=== PATIENT | female | born 1960 | race Caucasian/White ===

== ENCOUNTER 2016-12-28 08:52 | Day surgery (SDC) | payer OTHER ==
[~2016-12-28] VITALS: Ht 160 cm; Wt 67.8 kg
[2016-12-28 09:40] VITALS: Ht 160 cm; Wt 67.8 kg
[2016-12-28] MEDS ORDERED: HERBAL MEDS (09:44)
[2016-12-28 09:47] VITALS: BP 133/77; PULSE 83; RESP 19
[2016-12-28] MEDS ORDERED: FENTAnyl 50 MCG/ML VIAL ONE (10:28)
[2016-12-28] MEDS ORDERED: MIDAZOLAM 1 MG/ML 2 ML INJ ONE ×3 (10:28)
--- NOTE | 2016-12-28 10:34 | OPPN ---
Date/Time of Note Date/Time of Note DATE: 12/28/16 TIME: 10:31 Operative Report Preoperative Diagnosis Nausea Postoperative Diagnosis Nausea and screening colonoscopy Operation/Procedure Performed 1. Gastritis acute and chronic 2. Colon polyp, cold snare polypectomy done 2 polyps removed from the transverse colon Provider: TONY PATEL MD Estimated blood loss: none Transfusion Required: no Specimen: none Grafts/Implants: none Complications: no TONY PATEL MD Dec 28, 2016 10:33
[2016-12-28 10:50] VITALS: BP 125/73; PULSE 72; RESP 14
--- NOTE | 2016-12-28 11:10 | GILP ---
DATE OF PROCEDURE: 12/28/2016 SURGEON: Davi Boogie MD PROCEDURE PERFORMED: EGD with biopsy. HISTORY: The patient is a 56-year-old female undergoing this procedure for screening colonoscopy and upper endoscopy for persistent nausea. The risks of the procedure, related complications, sedative risk, alternatives discussed, informed consent was obtained. DESCRIPTION OF PROCEDURE: The patient was brought to the GI lab, sedated with Versed 5 mg and fentanyl 100 mg after optimal sedation the scope was positive within the esophagus, which was grossly within normal limits. Z-line was at 38 cm. Stomach mucosa revealed chronic gastritis. Multiple biopsies obtained to rule out H pylori infection. The duodenum first and second part appeared normal. Retroflexion in the stomach also was normal. Patient had a guzman gastritis. Four biopsies were obtained. There was also inflammatory polyp, sessile, in the antrum. Scope was straightened out and removed with good patient tolerance. IMPRESSION: 1. Normal esophagus. 2. Z-line at 37 cm. 3. Chronic and acute guzman gastritis. 4. Inflammatory polyp in the antrum. 5. Normal duodenum. PLAN: Plan is to review histopathology. PROCEDURE PERFORMED: Colonoscopy with polypectomy. DESCRIPTION OF PROCEDURE: Patient was turned around and the scope was passed with much ease into the rectum. Digital exam was normal. Advanced slowly all the way into the cecum. Because of the patient's position had to be changed from left recumbent to right recumbent position. Appendiceal orifice identified. IC valve identified. While coming out mucosa thoroughly inspected. There was a polyp in the mid transverse colon. Successfully removed by cold snaring technique. It was sessile, 1 cm in diameter. There was another polyp close to the splenic flexure. 1.5 cm in diameter. Cauliflower in appearance. Successfully removed by cold snaring technique. Underwater technique was used. The rest of the colon appeared normal. Retroflexion was normal. The scope was straightened out and removed with good patient tolerance. IMPRESSION: 1. Two polyps successfully removed from transverse colon as described by cold snare technique. 2. Negative all the way into the cecum. 3. Negative retroflexion. 4. Clarity and cleanliness was good. PLAN: S to review histopathology of the polyp. The patient definitely needs a repeat colonoscopy after 5 years. Dictated By: Davi Boogie MD /fnt/rm /Document#: [id number] ; [facility]
== END 2016-12-28 14:04 | disposition home or self-care (01) ==
LOC: GIL 08:52
PROVIDERS: ATTEND Internal Medicine Gastroenterology
DX: Z12.11 Encounter for screening for malignant neoplasm of colon (principal); K29.50 Unspecified chronic gastritis without bleeding; D12.3 Benign neoplasm of transverse colon
CPT/HCPCS: 43239; 45380; 88305; 88312; J2250; J3010; Z7610